=== PATIENT | male | born 1955 | race Caucasian/White ===

== ENCOUNTER 2016-10-18 12:24 | Emergency (ER) | payer SELFPAY ==
--- NOTE | ~2016-10-18 | ER ---
PATIENT'S NAME: TAVIA CHOWDARY [facility] AGE: 61 Y [address] ROOM: [place] [address] LOCATION: [facility] ADMIT DATE: 10/18/2016 ER/Outpatient Report DISCHARGE DATE: 10/18/2016 FAMILY PHYSICIAN: PHYSICIAN, NO ATTENDING PHYSICIAN: Christy Mendez Time of Arrival: 1235 hours. Time of Exam: 1235 hours. CHIEF COMPLAINT: Abdominal ascites. HISTORY OF PRESENT ILLNESS: The patient states he was [facility] and they recommended that he come over here to be evaluated for his abdominal ascites and his sore on his left foot. The patient states he has had the sore on his left foot for probably 9 months, he does think it is getting smaller. There is some redness around it and it is painful. He said that that has not changed. He thinks he was last tapped for his belly on September 23, according to our records it was September 20. He denies being nauseated, has not vomited, has not had any change in his bowel or bladder pattern, and has not had fever. ALLERGIES: COREY INHIBITORS. CURRENT MEDICATIONS: On his chart and reviewed by me. 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 PAST SURGERIES: He has had ultrasound-guided paracentesis numerous times. SOCIAL HISTORY: He states he smokes 1-1/2 packs every 2 days[address] use of street drugs. Does drink 3 beers per night. REVIEW OF SYSTEMS: All negative other than those mentioned in the HPI. PHYSICAL EXAMINATION: VITAL SIGNS: He weighed 93.3 kg. Blood pressure is 164/68, pulse of 88, respirations 22, temperature of 95.7 tympanic, and O2 saturations 100% on room PATIENT'S NAME: TAVIA CHOWDARY [facility] AGE: 61 Y [address] ROOM: [place] [address] LOCATION: [facility] ADMIT DATE: 10/18/2016 ER/Outpatient Report DISCHARGE DATE: 10/18/2016 FAMILY PHYSICIAN: PHYSICIAN, NO ATTENDING PHYSICIAN: Christy Mendez air. GENERAL: He is awake, alert, and oriented x4. SKIN: [place], warm, and dry. Lungs: Respirations are even and nonlabored. Lung sounds are clear throughout. HEART: Regular rate and rhythm. ABDOMEN: Round, firm. Bowel sounds are present. EXTREMITIES: Left anterior foot below the third digit has an open sore measures 0.5 cm x 0.5 cm, superficial, has minimal amount of serous drainage on the dressing. Does have some minimal redness around it. Does have sensation to his feet. LABORATORY DATA: Lab work is drawn. CBC shows white count of 4.8, hemoglobin is 8 with a hematocrit of 23.7. His pro time is 12.9 with an INR of 1.2. Chem panel: Sodium is 136, potassium 3.9, chloride 107, his albumin is 2, BUN 16, creatinine of 1.6. I did call Radiology, they were not able to do the ultrasound-guided abdominal paracentesis today, he is scheduled to have it done tomorrow at 11 o'clock. I did explain this to the patient. He states that works for him and he understands. IMPRESSION: 1. Ascites. 2. Open sore, left foot. PLAN: Dressing was applied to the left foot, he is to change it daily. He is to return tomorrow for ultrasound-guided paracentesis and follow up with [facility], his primary provider. He verbalized understanding. GENIE VELASQUEZ APRN FOR MD KEILA ERNANDEZ/ruthie /[id number] d: 10/18/16 1643 t: 10/20/16 1433, OUTPATIENT REPORT
[~2016-10-18 12:24] MED LIST: ADVAIR 250-501 EACH; ADVAIR 500-501 EACH INH; ADVIL200 MG PO; ALDACTONE25 MG PO; ALDACTONE50 MG PO; CEPHALEXIN500 MG PO; CHLORASEPTIC SP1 BOT PO; DELTASONE20 MG PO; ENULOSE SYRUP1 ML PO; FOLIC ACID1 MG PO; GABAPENTIN300 MG PO; LASIX20 MG PO; LASIX40 MG PO; LIBRIUM25 MG PO; NICODERM/HABITR21 MG TRANS; PRINIVIL OR ZES10 MG PO; SORE THROAT SP177 ML; THIAMINE HCL100 MG PO; TRIAMCINOLONE454 GM TOP; TYLENOL325 MG PO; VITAMIN B-12500 MCG PO
[2016-10-18 13:08] LABS: HEMATOCRIT 23.7 % (37.0-53.0); MCH 34.3 pg (27.0-34.0); MCHC 33.8 gm/dL (32.0-36.5); MCV 101.7 fl (83.0-98.0); MPV 9.9 fl (9.4-12.4); PLATELET COUNT 125 K/uL (150-450); RBC 2.33 M/uL (3.50-5.50); RDW-CV 16.8 % (11.9-14.6); WBC 4.8 K/uL (4.0-11.0)
[2016-10-18 13:18] LABS: INR - (THERAPEUTIC) 1.2 (0.9-1.1); PROTIME 12.9 SECONDS (9.6-11.1); PTT 32 SECONDS (25-32)
[2016-10-18 13:23] LABS: ANION GAP 14.9 (10.0-19.0); CALCIUM 8.5 mg/dL (8.5-10.5); CREATININE 1.6 mg/dL (0.6-1.3); POTASSIUM 3.9 mMol/L (3.7-5.1); TOTAL PROTEIN 7.9 g/dL (6.0-8.4)
[2016-10-18 13:37] LABS: ABSOLUTE NEUTROPHIL CT (ANC) 3.8 K/uL (1.4-9.0); LYMPHOCYTE # 0.5 K/uL (0.8-4.0); LYMPHOCYTE % 10 %; MONOCYTE # 0.5 K/uL (0.0-1.0); SEGMENTED NEUTROPHIL # 3.8 K/uL (1.4-9.0); SEGMENTED NEUTROPHIL % 79 %
== END 2016-10-18 14:32 | disposition disaster alternative care site (69) ==
LOC: GMED 12:24
PROVIDERS: Nurse Practitioner Family
DX: R18.8 Other ascites (principal); L98.9 Disorder of the skin and subcutaneous tissue, unspecified; F17.210 Nicotine dependence, cigarettes, uncomplicated; I10 Essential (primary) hypertension; F10.20 Alcohol dependence, uncomplicated

== ENCOUNTER → 2016-10-19 | Outpatient (CLI) | payer SELFPAY | END | disposition disaster alternative care site (69) | LOC: GOPD 10-18 14:30 | PROC: 0W9G3ZZ Drainage of Peritoneal Cavity, Percutaneous Approach (ICD-10-PCS; principal; 2016-10-19) | DX: R18.8 Other ascites (principal); B19.20 Unspecified viral hepatitis C without hepatic coma; I10 Essential (primary) hypertension; F10.10 Alcohol abuse, uncomplicated ==

== ENCOUNTER 2016-10-28 14:03 | Emergency (ER) | payer OTHER ==
--- NOTE | ~2016-10-28 | ER ---
PATIENT'S NAME: TAVIA CHOWDARY [place] AGE: 61 Y [address] ROOM: [place] [address] LOCATION: ED ADMIT DATE: 10/28/2016 ER/Outpatient Report DISCHARGE DATE: FAMILY PHYSICIAN: PHYSICIAN, NO ATTENDING PHYSICIAN: Brice Maya CHIEF COMPLAINT: Abdominal distention and weight gain. HISTORY OF PRESENT ILLNESS: The patient arrives via police from [facility] for evaluation of weight gain and abdominal distention. He has a history of known cirrhosis and has been treated for this in the past. He does require multiple episodes of abdominal paracentesis. He notes that he has had some dry throat lately, but he is otherwise without complaints. When he is coughing, he does state that he has some blood tinge issues but no other issues. PAST MEDICAL HISTORY: Documented on the record and reviewed by me. SOCIAL HISTORY: Documented on the record and reviewed by me. MEDICATIONS: Documented on the record and reviewed by me. ALLERGIES: DOCUMENTED ON THE RECORD AND REVIEWED BY ME. REVIEW OF SYSTEMS: All systems reviewed and negative except as noted in the HPI. PHYSICAL EXAMINATION: VITAL SIGNS: Vital signs are as follows: Blood pressure 159/70, pulse 90, respiratory rate is 20, temperature 96.9, SpO2 is 99% on room air. Pain 0/10. GENERAL: An age-appropriate male. No obvious pain or distress. Resting comfortably on the exam table. NEUROLOGIC: Awake and alert. GCS 15. No focal deficits or asymmetry. HEENT: Normocephalic, atraumatic. Eyes are mildly icteric. No other acute ocular findings. The oropharynx is dry. The nasal mucosa is notable for dried blood bilateral with no active bleeding. NECK: Supple. The trachea is midline. CHEST: Heart is regular rate and rhythm with no murmurs. LUNGS: Clear to auscultation bilaterally with no rhonchi, wheezes, or rales. Abdomen: Protuberant and without focal tenderness. No rebound or guarding. PATIENT'S NAME: TAVIA CHOWDARY [place] AGE: 61 Y [address] ROOM: [place] [address] LOCATION: ED ADMIT DATE: 10/28/2016 ER/Outpatient Report DISCHARGE DATE: FAMILY PHYSICIAN: PHYSICIAN, NO ATTENDING PHYSICIAN: Brice Maya The abdomen is otherwise normal to inspection. It is not tense. BACK: Nontender to palpation. EXTREMITIES: Warm and well perfused with no erythema or edema appreciated. Skin: Warm, dry, and intact. LABORATORY DATA AND X-RAYS: Bedside ultrasound reveals ascites. Labs: Sodium 139, potassium 4.1, chloride 107, CO2 is 21, BUN is 27, creatinine 1.8, GFR 39. LFTs: Total bilirubin is 2.4, AST is 68, ALT is 40, alkaline phosphatase is 103. Free T4 is 1.1. TSH is 2.6. WBC 6.9, hemoglobin 7.8, platelets of 118. INR is 1.2. IMPRESSION: 1. Ascites. 2. Recent epistaxis. 3. Stable anemia. 4. Cirrhosis with hepatitis. EMERGENCY DEPARTMENT COURSE: The patient was evaluated as above. What he is reporting is coughing of blood, it is suspected he has small epistaxis. No active bleeding. No hematemesis or hemoptysis in the emergency department. No other signs of PE or DVT. The patient's platelets and INR are not consistent with a spontaneous bleeding diathesis. He was found to be an appropriate candidate for paracentesis, and this was done by Interventional Radiology. Please see their documentation for details. The fluid was reported to be yellow and clear with no concern for infection and clinically does not have concern for infection. He is otherwise appropriate. We will recommend nasal petrolatum and moisturizing strategies at [facility]. Encouraged fluid hydration. Follow up or return as needed. MD FRANKIE HANDELY/ruthie /[id number] d: 10/28/16 2255 t: 10/31/16 1733, OUTPATIENT REPORT
[2016-10-28 15:27] LABS: BASOPHIL % 0.6 %; EOSINOPHIL # 0.2 K/uL (0.0-0.5); HEMATOCRIT 23.2 % (37.0-53.0); HEMOGLOBIN 7.8 g/dL (11.0-16.0); IMMATURE GRANULOCYTE % 0.4 %; LYMPHOCYTE # 0.6 K/uL (0.8-4.0); LYMPHOCYTE % 8.5 %; MCH 34.2 pg (27.0-34.0); MCHC 33.6 gm/dL (32.0-36.5); MCV 101.8 fl (83.0-98.0); MONOCYTE # 0.9 K/uL (0.0-1.0); MONOCYTE % 13.3 %; MPV 9.3 fl (9.4-12.4); NEUTROPHIL # (ANC) 5.1 K/uL (1.4-9.0); NEUTROPHIL % 74.2 %; NRBC % 0 /100WBC (0-0.00); PLATELET COUNT 118 K/uL (150-450); RBC 2.28 M/uL (3.50-5.50); RDW-CV 19.4 % (11.9-14.6); WBC 6.9 K/uL (4.0-11.0)
[2016-10-28 15:38] LABS: INR - (THERAPEUTIC) 1.2 (0.9-1.1); PROTIME 12.8 SECONDS (9.6-11.1); PTT 30 SECONDS (25-32)
[2016-10-28 15:49] LABS: ANION GAP 15.1 (10.0-19.0); CALCIUM 8.6 mg/dL (8.5-10.5); CREATININE 1.8 mg/dL (0.6-1.3); POTASSIUM 4.1 mMol/L (3.7-5.1); TOTAL BILIRUBIN 2.4 mg/dL (0.0-1.5)
[2016-10-28 15:50] LABS: ALBUMIN 1.9 gm/dL (3.5-5.0)
== END 2016-10-28 16:09 ==
LOC: GMED 14:03
PROVIDERS: Emergency Medicine
PROC: 0W9G3ZZ Drainage of Peritoneal Cavity, Percutaneous Approach (ICD-10-PCS; principal; 2016-10-28)
DX: R18.8 Other ascites (principal); R04.0 Epistaxis; D64.9 Anemia, unspecified; K74.60 Unspecified cirrhosis of liver; K75.9 Inflammatory liver disease, unspecified

== ENCOUNTER → 2016-11-01 | Outpatient (CLI) | payer OTHER | END | disposition disaster alternative care site (69) | LOC: GLAB 12:15 | PROC: 0W9G3ZZ Drainage of Peritoneal Cavity, Percutaneous Approach (ICD-10-PCS; principal; 2016-11-01) | DX: R18.8 Other ascites (principal); B18.2 Chronic viral hepatitis C; I10 Essential (primary) hypertension; G62.9 Polyneuropathy, unspecified; K74.60 Unspecified cirrhosis of liver ==